=== PATIENT | female | born 1940 | race Caucasian/White ===

== ENCOUNTER 2020-12-12 10:57 | Outpatient (CLI) | payer MEDICARE, SELFPAY ==
[2020-12-12 12:02] LABS: Hematocrit 41.9 % (37.0-47.0)
[2020-12-12 12:18] LABS: Blood Urea Nitrogen 20 mg/dL (7-17); Estimated Glomerular Filt Rate 60
== END 2020-12-12 10:58 | disposition home or self-care (01) ==
LOC: ANHLAB 11:03
PROVIDERS: PCP Emergency Medicine; Visit Provider Internal Medicine Interventional Cardiology
DX: I42.9 Cardiomyopathy, unspecified (principal); E78.5 Hyperlipidemia, unspecified
CPT/HCPCS: 36415; 82565; 84520; 85014; 85018

== ENCOUNTER 2021-02-06 08:32 | Outpatient (CLI) | payer MEDICARE, SELFPAY ==
--- NOTE | 2021-02-06 09:17 | ECG_ITS ---
Measurements Intervals [place] Rate: 77 P: -31 AL: 311 QRS: 233 QRSD: 182 T: 13 QT: 459 QTc: 520 Interpretive Statements ELECTRONIC ATRIAL PACEMAKER ELECTRONIC VENTRICULAR PACEMAKER BASELINE ARTIFACT- I, II, III, AVR, AVL, AVF NO FURTHER INTERPRETATION IS POSSIBLE ATYPICAL ECG Electronically Signed On 02-06-2021 9:31:56 FINANCIAL SERVICES EDUCATION CONSULTANT by Bunny Wall D.O.
[2021-02-06 09:26] LABS: Hematocrit 43.6 % (37.0-47.0); Hemoglobin 13.8 g/dL (12.0-15.0)
[2021-02-06 09:38] LABS: Albumin Level 4.1 g/dL (3.5-5.1); Estimated Glomerular Filt Rate 43; Glucose 126 mg/dL (65-110)
[2021-02-06 09:54] LABS: Urine Cotinine NEGATIVE
[2021-02-06 10:03] LABS: Hemoglobin A1C 5.3 % (<5.7)
== END 2021-02-06 08:33 | disposition home or self-care (01) ==
LOC: ANHLAB 08:42
PROVIDERS: PCP Emergency Medicine; Visit Provider Orthopaedic Surgery
DX: M16.12 Unilateral primary osteoarthritis, left hip (principal); Z01.818 Encounter for other preprocedural examination; Z95.0 Presence of cardiac pacemaker; I11.0 Hypertensive heart disease with heart failure
CPT/HCPCS: 80307; 82040; 82565; 82947; 83036; 85014; 85018; 93005

== ENCOUNTER 2021-03-23 08:33 | Outpatient (CLI) | payer MEDICARE, SELFPAY ==
[2021-03-23 10:27] LABS: Alanine Aminotransferase 22 U/L (4-35); Albumin Level 4.3 g/dL (3.5-5.1); Alkaline Phosphatase 109 U/L (38-126); Anion Gap 9 mmol/L (8-16); Aspartate Amino Transferase 26 U/L (14-36); Bilirubin,Total 0.7 mg/dL (0.2-1.3); Blood Urea Nitrogen 23 mg/dL (7-17); Calcium 9.2 mg/dL (8.4-10.2); Carbon Dioxide 27 mmol/L (22-30); Chloride 104 mmol/L (98-107); Cholesterol 189 mg/dL (0-200); Estimated Glomerular Filt Rate 60; Glucose 122 mg/dL (65-110); HDL Direct 70 mg/dL; Sodium 140 mmol/L (137-145); Triglycerides 108 mg/dL (<150)
[2021-03-23 10:38] LABS: LDL Cholesterol Direct 83 mg/dL
[2021-03-27 23:58] LABS: Vitamin D 1,25 (OH)2 Total 44 pg/mL (18-72); Vitamin D2 1,25 (OH)2 <8 pg/mL; Vitamin D3 1,25 (OH)2 44 pg/mL
== END 2021-03-23 08:34 | disposition home or self-care (01) ==
PROVIDERS: PCP Emergency Medicine; Visit Provider Emergency Medicine
DX: R53.83 Other fatigue (principal); I10 Essential (primary) hypertension
CPT/HCPCS: 36415; 80053; 80061; 82652

== ENCOUNTER 2021-05-17 09:39 | Outpatient (CLI) | payer MEDICARE, SELFPAY ==
[2021-05-17 11:18] LABS: Basophils Absolute Auto 0.1 K/mm3 (0.0-0.1); Basophils Percent Auto 0.6 % (0.2-1.2); Eosinophils Absolute Auto 0.2 K/mm3 (0-0.3); Eosinophils Percent Auto 2.7 % (0-4.4); Hemoglobin 13.7 g/dL (12.0-15.0); Immature Granulocyte Absolute 0.03 K/mm3 (0.00-0.031); Immature Granulocyte Percent A 0.4 % (0-0.5); Lymphocytes Absolute Auto 2.13 K/mm3 (0.9-3.2); Lymphocytes Percent Auto 26.5 % (18.3-44.2); Mean Corpuscular HGB Conc 30.4 g/dl (32-36); Mean Corpuscular Hemoglobin 30.2 pg (26-34); Mean Corpuscular Volume 99.1 fl (80-100); Mean Platelet Volume 9.5 fl (7.4-10.4); Monocytes Absolute Auto 0.6 K/mm3 (0.1-0.6); Neutrophils Percent Auto 61.8 % (45.5-73.1); Nucleated Red Blood Cells Perc 0.2 % (0.0-0.2); Platelet Count Result 346 k/mm3 (150-375); Red Blood Count 4.54 M/mm3 (4.2-5.4)
[2021-05-17 11:23] LABS: Albumin Level 4.3 g/dL (3.5-5.1)
[2021-05-17 11:26] LABS: Anion Gap 5 mmol/L (8-16); Blood Urea Nitrogen 19 mg/dL (7-17); Carbon Dioxide 30 mmol/L (22-30); Chloride 105 mmol/L (98-107); Estimated Glomerular Filt Rate > 60; Glucose 106 mg/dL (65-110); Sodium 140 mmol/L (137-145)
[2021-05-17 11:27] LABS: Urine Cotinine NEGATIVE
[2021-05-17 11:28] LABS: Hemoglobin A1C 5.4 % (<5.7)
[2021-05-17 11:49] LABS: INR 1.1; Partial Thromboplastin Time 27.8 SECONDS (22.3-36.8); Prothrombin Time 13.3 Seconds (11.1-14.7)
== END 2021-05-17 09:40 | disposition home or self-care (01) ==
PROVIDERS: Anesthesiology; PCP Emergency Medicine; Visit Provider Orthopaedic Surgery
DX: M16.12 Unilateral primary osteoarthritis, left hip (principal); N18.30 Chronic kidney disease, stage 3 unspecified; Z79.899 Other long term (current) drug therapy; Z01.818 Encounter for other preprocedural examination
CPT/HCPCS: 36415; 80048; 80307; 82040; 83036; 85025; 85610; 85730; 87081

== ENCOUNTER 2021-06-14 16:33 | Observation (INO) | payer MEDICARE, SELFPAY ==
--- NOTE | 2021-05-17 10:00 | PC.NURSE ---
Report to the Outpatient Waiting Room, entrance under the green pavilion located off [facility], at time _0600__ on date _06/13/21_. OR Time: _0730_. - You and your visitor will be asked a series of questions to screen for COVID 19 for your protection. - A mask is required within the hospital. One visitor will be allowed to accompany the patient into the hospital. Patients visitor will be instructed to remain with patient at all times or leave the building. We will allow the visitor to come back to the postoperative area when patient is ready. (VISITING HOURS 10AM-7PM, USE MAIN ENTRANCE) Preoperative COVID Testing Requirements: NONE Patients may have clear liquids (water, carbonated beverages, clear teas, apple juice) until 3 hours prior to surgery (0430 AM) with a maximum of 20 ounces. - No food from midnight until time of surgery Take the following medications with a SIP of water the morning of surgery: _AMIODARONE, METOPROLOL__ Medications to discontinue per physician _APIXABAN (ELIQUIS) - 2 DAYS PRIOR TO SURGERY, LAST DOSE TO BE TAKEN ON 06/10/21_ Please no make-up, nail vietnamese, hairspray, perfume, deodorant, or body powder the day of surgery. No jewelry (including any body piercings) or valuables the day of surgery, leave them at home. Please take a shower or bath the night before, or the morning of, surgery with an antibacterial soap. Wear comfortable, loose fitting clothing. - Jewelry must be removed prior to entering the operating room. Rings and piercings that are not removed may be cut off. - The hospital will not accept responsibility for valuables. - Please leave all valuables, including medications, at home the day of surgery. If you are going home after surgery, a licensed flag car driver must drive you home. - NO public transportation without another adult. - We recommend that an adult stay with you for 24 hours following discharge. - We also recommend that you do not drive, make important decision, drink alcoholic beverages, or take any drugs that were not prescribed by your health care provider for at least 24 hours after your discharge time. One visitor will be allowed to accompany the patient into the hospital. Patients visitor will be instructed to remain with patient at all times or leave the building. We will allow the visitor to come back to the postoperative area when patient is ready. Follow any additional instructions given to you from your surgeon. Instructions given to __PT & DAUGHTER __and asked if any additional questions and then verbalized understanding. Patient advised to call surgeon office or pre surgery nurse liaisonLIZETH [phone] if any additional questions.
[2021-05-17 10:15] VITALS: BP 158/90; PULSE 76; RESP 20; TEMP 36.5; O2SAT 99; BMI 37.2
--- NOTE | 2021-06-12 10:05 | PCCCNOTE ---
Called to Dr. Porras's office manager epic, Deborah, she confirms that patient should be OPER/23 hour observation.
--- NOTE | 2021-06-12 15:24 | WPDANESEPPF ---
Anes - Initial Pre Proc Eval Procedure: Operation Date: 06/13/21 07:30 Proposed Procedures p Left Total Hip Arthroplasty - Jamar Porras MD Date/Time: 06/12/21 15:24 Surgeon: Jamar Porras MD Pre Op Diagnosis: primary OA left hip Patient Data Age: 81 Gender: F Height: 1.63 m Weight: 98.4 kg Last Vital Signs Temp 36.5 C 05/17/21 10:15 Pulse 76 05/17/21 10:15 Resp 20 05/17/21 10:15 BP 158/90 H 05/17/21 10:15 Pulse Ox 99 05/17/21 10:15 Allergies Allergy/AdvReac Type Severity Reaction Status Date / Time lisinopril Allergy Unknown Cough Verified 05/17/21 10:17 Home Medications Medication Instructions Recorded Confirmed Type amiodarone 200 mg tablet 200 mg PO QAM 10/26/20 05/17/21 History apixaban 5 mg tablet 5 mg PO BID 10/26/20 05/17/21 History atorvastatin 20 mg tablet 20 mg PO HS 10/26/20 05/17/21 History furosemide 40 mg tablet 40 mg PO QAM 10/26/20 05/17/21 History losartan 25 mg tablet 25 mg PO QAM 10/26/20 05/17/21 History metoprolol succinate 100 mg 100 mg PO BID 10/26/20 05/17/21 History tablet,extended release 24 hr fexofenadine-pseudoephedrine 1 tablet PO QAM PRN 05/17/21 05/17/21 History [Janae-D 24 Hour] ECG: Date of Service: 02/06/21 Procedure(s): CA 12 lead EKG Accession Number(s): [id number] cc: ~ Measurements Intervals [place] Rate: 77 P: -31 GA: 311 QRS: 233 QRSD: 182 T: 13 QT: 459 QTc: 520 Interpretive Statements ELECTRONIC ATRIAL PACEMAKER ELECTRONIC VENTRICULAR PACEMAKER BASELINE ARTIFACT- I, II, III, AVR, AVL, AVF NO FURTHER INTERPRETATION IS POSSIBLE ATYPICAL ECG Electronically Signed On 02-06-2021 9:31:56 TOOLMAKER HELPER by Bunny Wall D.O. Other studies: ef 48% on 2020 cath - cleared by mds rn @ low risk for cardiac event Patient hx anesthesia problems: none Family hx anesthesia problems: none Results Review: All pre-operative results and documents have been reviewed as part of the pre-operative evaluation. [facility] Past Medical History Medical History (Updated 06/12/21 @ 15:25 by Clay Gibson MD) CAD (coronary artery disease) Congestive heart failure (~2015) History of arm fracture Hyperlipidemia Hypertension Pacemaker (~2015) Surgical History Surgical History History of neck surgery Family History Family History Unknown Heart disease Cancer Arthritis Social History Social History Smoking status: Never smoker Second hand tobacco smoke exposure: No Additional smoking assessment comments: PT DENIES ALL FORMS OF TOBACCO USE Alcohol intake: never Substance use: never Substance use type: does not use Living arrangements: alone Spiritual care concerns: No Anes - Eval Final PreProcedure Day of Procedure 06/12/21 15:24 Patient weight: obese Heart: regular rate and rhythm Lungs: clear to auscultation and normal air movement Airway: Mallampati scale class II Neurological: alert and oriented Last oral intake: >/= 8 hours ASA classification: IV Emergent: no Anesthetic plan: proceed Anesthesia type and monitoring: general LMA and ETT Results Review: All pre-operative results and documents have been reviewed as part of the pre-operative evaluation. Informed Consent: The patient's anesthetic plan and its attendant risks and benefits were discussed with the patient/family/POA. Questions were solicited and answers provided to the satisfaction of the patient/family/POA.
[2021-06-13] VITALS (14 sets, daily range): BP systolic 97–150; BP diastolic 51–78; PULSE 70–86; RESP 10–20; TEMP 35.7–36.3; O2SAT 95–100
[2021-06-13] MEDS: ACETAMINOPHEN 500 MG TABLET 1000 MG PO (06:43)
[2021-06-13] MEDS: LACTATED RINGERS 1,000 ML 30 ML IV CONT (06:56)
[2021-06-13] MEDS: TRANEXAMIC ACID 1,000MG/ISO100 1,000 MG/100 ML BAG 200 MG IVPB (06:56)
--- NOTE | 2021-06-13 07:17 | WPDHPUPDATE1 ---
History and Physical Update Update Date/Time: 06/13/21 07:17 History and Physical has been reviewed, including an updated exam of the patient. There are NO changes in the patient's condition. Risks, benefits, and alternatives have been discussed and questions answered. Patient agrees to proceed with procedure.
[2021-06-13] MEDS: ceFAZolin 2 GM/D5W 50 ML 2 GM/50 ML BAG IVPB ×3 (07:30→22:43)
[2021-06-13] MEDS: fentaNYL CITRATE INJ (*CRX) 100 MCG/2 ML VIAL 25 MCG IV PUSH ×3 (10:26→10:39)
--- NOTE | 2021-06-13 11:42 | ADMGEN ---
This patient, Barbara Willoughby, was admitted to Medical Room 247-. Patient/family oriented to hospital policies and general routines including ID bracelet, bed and alarms, visiting hours, pain management, procedures, bathroom and other care routines, personal items, smoking policy, room service/diet, and visiting hours. Information on how to activate the Rapid Response Team has been discussed. Patient/Family are encouraged to report perceived risks to care and to ask questions if they do not understand what they are told or what they should do.
[2021-06-13] MEDS: SODIUM CHLORIDE 0.9% IV 1,000 ML 125 ML IV CONT (12:02)
[2021-06-13] MEDS: METOPROLOL SUCCINATE EXT REL 100 MG TABCR PO (12:05)
[2021-06-13] MEDS: FUROSEMIDE 40 MG TABLET PO (12:06)
[2021-06-13] MEDS: polyethylene glycoL 3350 17 GM POWD.PACK PO (12:06)
--- NOTE | 2021-06-13 13:42 | W.PM.PROC2 ---
Procedure Note - Detailed Date of Procedure 06/13/21 Pre-op Diagnosis primary OA left hip Post-op Diagnosis Same Procedure Performed Left Total Hip Arthroplasty Surgeon Jamar Porras MD Customer Support Professional Glenda Luis PA-C Anesthesia General Findings Satisfactory bone quality. Morbid obesity in the hips. Description of Procedure The patient was given preoperative antibiotics. A general anesthetic was administered. The patient was carefully placed in the lateral decubitus position on the PEG board. The shoulders and hips were carefully positioned for component and leg length positioning reference. The hip was prepped and draped in the usual sterile fashion. A longitudinal incision was created over the posterior aspect of the greater trochanter. Careful dissection was brought down through the deep fascia with electrocautery. A minimally invasive optimized posterior approach to the hip was performed. The short external rotators and capsule were taken down in an L-shaped capsulotomy. The tissue was tagged for later repair using number 2 high strength suture. The femoral neck was measured and taken in situ. The femoral head was removed. The acetabulum was carefully exposed. The inferior capsule was released. The labrum was resected. The acetabulum was sequentially reamed to one over the intended cup size. The cup was impacted into position with excellent press-fit. Typical anatomic landmarks, including the bony contact points as well as the inferior transverse acetabular ligament were used to confirm cup positioning with preoperative templating. Attention was turned to the femur, which was carefully exposed. The hip was reamed and then broached sequentially. Excellent press-fit was obtained with the broach. The hip was trialed. Measurements were utilized, including the lesser trochanter as well as the center of the femoral head and the tip of the trochanter, and excellent assessment of the offset and leg lengths were confirmed. The real component was impacted into position. Trialing confirmed appropriate leg length and offset with soft tissue balancing as well apparent feel of the leg, both at the knee and the heel. Soft tissues were assessed using the the iliotibial band. Reduction of the posterior capsule and external rotators were also used as a secondary assessment. The hip was copiously irrigated with pulsatile lavage antibiotic solution periodically throughout the procedure. The real components were then assembled and reduced. The hip was stable throughout typical maneuvers, including extension, external rotation to 70 degrees, the position of sleep as well as flexion to 90 degrees with internal rotation past 45 degrees. The shake test confirmed stability without impingement. Osteophytes were removed as necessary. The short external rotators and capsule were repaired back to the posterior trochanter through drill holes. The deep fascia was repaired with running number 2 Quill suture, followed by 0 Stratafix suture and 2-0 Stratafix suture in the dermis. Steri-Strips were placed on the skin, followed by a sterile silver occlusive dressing. There were no complications. Meticulous hemostasis was maintained with the AquaMantys device. The patient was brought to the recovery room in stable condition. There were no complications. Implants The Accolade II hip stem, 127 degree size 6 , was utilized with excellent press-fit. The 50 mm Trident II acetabular component was impacted with excellent press-fit stability. The -5 , 36 mm Biolox ceramic femoral head was utilized. Estimated Blood Loss -250.0 Drains No Packing No Pathology None sent Complications No immediate complications Condition Stable Disposition PACU
[2021-06-13] MEDS: ONDANSETRON INJ 4 MG/2 ML VIAL IV PUSH (14:00)
--- NOTE | 2021-06-13 16:35 | PC.NURSE ---
Patient refused cold therapy, stated its too cold and isn't going to put it on.
[2021-06-13] MEDS: SENNA/DOCUSATE SODIUM TABLET 2 TAB PO (17:07)
--- NOTE | 2021-06-13 21:04 | PM.IMCN ---
Assessment and Plan Assessment and plan (1) Arthritis of left hip: Code(s): M16.12 - Unilateral primary osteoarthritis, left hip Status: Acute Assessment and Plan: Patient doing very well and she is up in the chair when being evaluated. Patient denies any pain to her hip. Will continue with pain medication and DVT prophylaxis per Orthopedic surgery's recommendations. (2) HTN (hypertension): Qualifiers: Hypertension type: primary hypertension Qualified Code(s): I10 - Essential (primary) hypertension Code(s): I10 - Essential (primary) hypertension Status: Acute Assessment and Plan: Will resume patient's home medications and adjust medications accordingly for optimal blood pressure control. (3) Afib: Qualifiers: Atrial fibrillation type: unspecified chronic Qualified Code(s): I48.20 - Chronic atrial fibrillation, unspecified Code(s): I48.91 - Unspecified atrial fibrillation Status: Acute Assessment and Plan: Patient's home amiodarone and beta-jessy has been resumed. Patient will be restarted on her Eliquis when Orthopedic surgery is okay with this medication. (4) Irritation of right eye: Code(s): H57.89 - Other specified disorders of eye and adnexa Status: Acute Assessment and Plan: Most likely secondary to corneal abrasion. Patient does have lubricating drops at bedside she states that is mildly improved with this. Will continue to monitor patient for any further complaints. HPI Data of Consult Consult date: 06/13/21 Requesting Physician: Jamar Porras MD Primary Care Provider: Carlos Burrell MD Consult Narrative Narrative: Barbara Willoughby is a 81 year old female who presented to the hospital for an elective left hip arthroplasty. Patient states that she does follow with Cardiology in [place], [place] for paroxysmal atrial fibrillation. Patient states she does have a pacemaker which was placed in 2015. 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 Patient had cardiac catheterization in 2020 showing a small posterior infarct, 40% stenosis to her mid LAD and no further stenotic areas noted and ejection fraction of 40%. At this point time patient states she is doing very well she is sitting up in a chair with no complaints of hip pain. Patient states she does have right eye pain and it feels like a foreign substance may be in there. Patient states that has been bothering her since she woke up from surgery. At this point time patient is denying any chest pain, shortness a breath, lightheadedness, dizziness, syncopal, or near syncopal episodes. Review of Systems Review of Systems: A 12 point review of systems was completed patient all pertinent positive and negative per HPI the remainder are unremarkable. [facility] Past Medical History Medical History (Updated 06/13/21 @ 21:15 by Cecy Villanueva APRN) CAD (coronary artery disease) Congestive heart failure (~2015) History of arm fracture Hyperlipidemia Hypertension Pacemaker (~2015) Surgical History Surgical History History of neck surgery Family History Family History Unknown Heart disease Cancer Arthritis Social History Social History Smoking status: Never smoker Second hand tobacco smoke exposure: Yes Alcohol intake: never Substance use: never Substance use type: does not use Living arrangements: alone Spiritual care concerns: No Meds Home Medications and Allergies Home Medications Medication Instructions Recorded Confirmed Type amiodarone 200 mg tablet 200 mg PO QAM 10/26/20 06/13/21 History apixaban 5 mg tablet 5 mg PO BID 10/26/20 06/13/21 History atorvastatin
[2021-06-13] MEDS: FAMOTIDINE 20 MG TABLET PO (21:35)
[2021-06-13] MEDS: ATORVASTATIN 20 MG TABLET PO (21:35)
--- NOTE | 2021-06-13 23:53 | PC.NURSE ---
Per report pt refusing cryocuff. Pt is agreeable to use gel packs at this time. Gel packs ordered as substitute and placed in freezer.
[2021-06-14] VITALS (10 sets, daily range): BP systolic 96–148; BP diastolic 40–71; PULSE 73–111; RESP 20–21; TEMP 35.8–36.9; O2SAT 93–100
--- NOTE | ~2021-06-14 | XR_ITS ---
EXAMINATION: XR hip LT min 2V DATE: 06/13/2021 10:22 INDICATION: Postoperative evaluation following left total hip arthroplasty TECHNIQUE: Anteroposterior and lateral views of the left hip were obtained. COMPARISON: 10/26/2020 FINDINGS: Interval placement of a left total hip arthroplasty which appears well seated in near anatomic alignm ent. Expected subcutaneous gas in the postoperative bed. No fractures identified. IMPRESSION: 1. Left total hip arthroplasty, negative for postoperative purposes. Reviewed, dictated and finalized at location A.
[2021-06-14] MEDS: METOPROLOL SUCCINATE EXT REL 50 MG TABCR PO (00:13)
[2021-06-14] MEDS: oxyCODONE HCL (*CRX) 5 MG TAB IR PO ×2 (04:35→22:50)
[2021-06-14 06:42] LABS: Potassium 3.9 mmol/L (3.4-5.0)
[2021-06-14 06:51] LABS: Basophils Percent Auto 0.2 % (0.2-1.2); Hematocrit 32.6 % (37.0-47.0); Hemoglobin 10.4 g/dL (12.0-15.0); Immature Granulocyte Absolute 0.07 K/mm3 (0.00-0.031); Immature Granulocyte Percent A 0.4 % (0-0.5); Lymphocytes Absolute Auto 1.12 K/mm3 (0.9-3.2); Lymphocytes Percent Auto 6.9 % (18.3-44.2); Mean Corpuscular HGB Conc 31.9 g/dl (32-36); Mean Platelet Volume 10.2 fl (7.4-10.4); Monocytes Absolute Auto 1.2 K/mm3 (0.1-0.6); Monocytes Percent Auto 7.5 % (2.6-8.5); Neutrophils Absolute Auto 13.7 K/mm3 (1.3-6.7); Nucleated Red Blood Cells Perc 0.1 % (0.0-0.2); Platelet Count Result 270 k/mm3 (150-375); Red Blood Count 3.36 M/mm3 (4.2-5.4); Red Cell Distribution Width 14.2 % (11.5-14.5); White Blood Count 16.2 K/mm3 (4.5-10.0)
[2021-06-14] MEDS: ceFAZolin 2 GM/D5W 50 ML 2 GM/50 ML BAG IVPB (06:56)
[2021-06-14 07:46] LABS: Anion Gap 5 mmol/L (8-16); Blood Urea Nitrogen 24 mg/dL (7-17); Carbon Dioxide 24 mmol/L (22-30); Chloride 105 mmol/L (98-107); Estimated CRCL calculation 44 ml/min; Estimated Glomerular Filt Rate 53; Glucose 128 mg/dL (65-110); Sodium 134 mmol/L (137-145)
[2021-06-14] MEDS: AMIODARONE HCL 200 MG TABLET PO (08:06)
[2021-06-14] MEDS: SENNA/DOCUSATE SODIUM TABLET 2 TAB PO ×2 (08:07→16:52)
[2021-06-14] MEDS: LOSARTAN POTASSIUM 25 MG TABLET PO (08:07)
[2021-06-14] MEDS: FUROSEMIDE 40 MG TABLET PO (08:07)
[2021-06-14] MEDS: FAMOTIDINE 20 MG TABLET PO ×2 (08:07→19:52)
[2021-06-14] MEDS: polyethylene glycoL 3350 17 GM POWD.PACK PO (08:07)
[2021-06-14] MEDS: METOPROLOL SUCCINATE EXT REL 100 MG TABCR PO ×2 (08:07→19:51)
[2021-06-14] MEDS: oxyCODONE HCL (*CRX) 5 MG TAB IR 10 MG PO (13:24)
--- NOTE | 2021-06-14 16:20 | PM.PNORT ---
Progress Note: A&P Assessment and Plan (1) Status post total hip replacement, left: Code(s): Z96.642 - Presence of left artificial hip joint Status: Acute Assessment and Plan: POD #1 Total hip arthroplasty Patient struggling with PT and pain control. She does not feel steady when ambulating. She is very tired. She has been very sedentary for the past 4 years and she lacks strength. I recommend she get more therapy before going home. She will have her daughter at home with her helping her; however rehab may be a consideration due to her decreased strength and stamina. Will reassess discharge tomorrow. Will restart apixaban 5 mg daily tonight. Subjective Subjective Date/Time Seen: 06/14/21 16:20 Saw patient twice today. Increased pain and trouble ambulating. Patient has not been very active in the last 4 years and has decreased strength. States she felt like her hip was going to give out at times and she did not feel safe. No numbness or tingling. No other symptoms. Patient did not sleep well last night and is tired. Review of Systems Review of Systems: All systems reviewed & are unremarkable except as noted in HPI and below Exam Narrative: Overweight 81 y/o female. Resting comfortably in bed. Wearing compression socks bilaterally. Dressing dry and intact with no drainage. Moderate swelling. No ecchymosis. No erythema. No hematoma. Range of motion limited due to pain. Calf nontender. Thigh nontender. Neurologic status intact. No varicosities. Distal pulses palpable. Objective Data Vital Signs Vital Signs: Vital Signs - 24 hr 06/13/21 17:01 06/13/21 21:01 06/13/21 23:32 Temperature 97.2 F L 96.2 F L 96.6 F L Pulse Rate 73 82 86 Respiratory Rate 18 18 20 Blood Pressure 110/57 L 97/56 L 105/51 L Pulse Oximetry 100 97 97 06/14/21 00:13 06/14/21 04:50 06/14/21 08:06 Temperature 96.5 F L Pulse Rate 86 98 111 H Respiratory Rate 20 Blood Pressure 96/49 L Pulse Oximetry 97 06/14/21 08:07 06/14/21 14:01 Temperature 98.4 F Pulse Rate 111 H 100 Respiratory Rate 20 Blood Pressure 111/56 L Pulse Oximetry 100 Intake/Output Intake/Output: Intake & Output 03/27/22 03/28/22 03/29/22 03/30/22 23:59 23:59 23:59 23:59 Intake Total 2009 870 Output Total 500 Balance 2009 370 Meds/Results Medications: Active Medications Generic Name Dose Route Start Last Admin Trade Name Freq PRN Reason Stop Dose Admin Acetaminophen 650 mg 06/13/21 11:16 Acetaminophen 325 Mg Tablet PO Q6H PRN Mild Pain (1-3) or Fever Amiodarone HCl 200 mg 06/13/21 11:16 06/14/21 08:06 Amiodarone Hcl 200 Mg Tablet PO 200 mg QAM MELE Administration Apixaban 5 mg 06/14/21 21:00 Apixaban 5 Mg Tablet PO HS MELE Atorvastatin Calcium 20 mg 06/13/21 21:00 06/13/21 21:35 Atorvastatin 20 Mg Tablet PO 20 mg HS MELE Administration Cyclobenzaprine HCl 10 mg 06/13/21 11:16 Cyclobenzaprine Hcl 10 Mg Tablet PO Q8H PRN Muscle Spasm Famotidine 20 mg 06/13/21 12:00 06/14/21 08:07 Famotidine 20 Mg Tablet PO 20 mg Q12HR MELE Administration Furosemide 40 mg 06/13/21 11:16 06/14/21 08:07 Furosemide 40 Mg Tablet PO 40 mg QAM MELE Administration Loratadine/Pseudoephedrine Sulfate 1 tab 06/13/21 11:41 Loratadine/Pseudoephedrine (*Crx) 10/240 Mg Tablet Er 24 Hr PO QAM PRN Congestion Losartan Potassium 25 mg 06/13/21 11:16 06/14/21 08:07 Losartan Potassium 25 Mg Tablet PO 25 mg QAM MELE Administration Metoprolol Succinate 100 mg 06/13/21 12:00 06/14/21 08:07 Metoprolol Succinate Ext Rel 100 Mg Tabcr PO 100 mg Q12HR MELE Administration Naloxone HCl 0.1 mg 06/13/21 11:16 Naloxone Hcl 0.4 Mg/Ml Vial IV PUSH Q2M PRN Opiate Reversal Ondansetron HCl 4 mg 06/13/21 11:16 06/13/21 14:00 Ondansetron Inj 4 Mg/2 Ml Vial IV PUSH 4 mg Q4H PRN Administration Nausea And Vomiting
--- NOTE | 2021-06-14 17:15 | PM.IMPN ---
Progress Note: A&P Assessment and Plan (1) Arthritis of left hip: Code(s): M16.12 - Unilateral primary osteoarthritis, left hip Status: Acute Assessment and Plan: POD#1 s/p left hip arthroplasty -Management per Orthopedic surgery (2) HTN (hypertension): Qualifiers: Hypertension type: primary hypertension Qualified Code(s): I10 - Essential (primary) hypertension Code(s): I10 - Essential (primary) hypertension Status: Acute Assessment and Plan: Will resume patient's home medications and adjust medications accordingly for optimal blood pressure control. (3) Afib: Qualifiers: Atrial fibrillation type: unspecified chronic Qualified Code(s): I48.20 - Chronic atrial fibrillation, unspecified Code(s): I48.91 - Unspecified atrial fibrillation Status: Acute Assessment and Plan: Continue home BB and amiodarone. Holding anticoagulation for now. (4) Irritation of right eye: Code(s): H57.89 - Other specified disorders of eye and adnexa Status: Acute Assessment and Plan: Continue lubricant drops Subjective Date/time seen: Date of service 06/14/21 09 Patient says she has been working with physical therapy and says she was told she will need a walker. Has no complaints. Review of Systems Musculoskeletal: Musculoskeletal: Reports arthralgias Exam Narrative: GENERAL: NAD, cooperative HEENT: Normocephalic, atraumatic, anicteric, nares clear, oropharynx moist and clear, dentition normal NECK: Supple CV: Normal S1, S2, RRR, No MRG RESP: CTAB, Normal work of breathing. Abdomen: Soft, non-tender, non-distended, +BS EXTREMITIES: Warm and well perfused, no clubbing, cyanosis SKIN: warm, dry and intact. NEURO:CN 2-12 grossly intact Objective Data Vital Signs Vital Signs: Vital Signs - 24 hr 06/13/21 21:01 06/13/21 23:32 06/14/21 00:13 Temperature 96.2 F L 96.6 F L Pulse Rate 82 86 86 Respiratory Rate 18 20 Blood Pressure 97/56 L 105/51 L Pulse Oximetry 97 97 06/14/21 04:50 06/14/21 08:06 06/14/21 08:07 Temperature 96.5 F L Pulse Rate 98 111 H 111 H Respiratory Rate 20 Blood Pressure 96/49 L Pulse Oximetry 97 06/14/21 14:01 06/14/21 16:50 Temperature 98.4 F 97.3 F L Pulse Rate 100 88 Respiratory Rate 20 20 Blood Pressure 111/56 L 148/71 H Pulse Oximetry 100 95 Intake/Output Intake/Output: Intake & Output 06/11/21 06/12/21 06/13/21 06/14/21 23:59 23:59 23:59 23:59 Intake Total 2009 111 Output Total 500 Balance 2009 610 Meds/Results Medications: Active Medications Generic Name Dose Route Start Last Admin Trade Name Freq PRN Reason Stop Dose Admin Acetaminophen 650 mg 06/13/21 11:16 Acetaminophen 325 Mg Tablet PO Q6H PRN Mild Pain (1-3) or Fever Amiodarone HCl 200 mg 06/13/21 11:16 06/14/21 08:06 Amiodarone Hcl 200 Mg Tablet PO 200 mg QAM MELE Administration Apixaban 5 mg 06/14/21 21:00 Apixaban 5 Mg Tablet PO HS MELE Atorvastatin Calcium 20 mg 06/13/21 21:00 06/13/21 21:35 Atorvastatin 20 Mg Tablet PO 20 mg HS MELE Administration Cyclobenzaprine HCl 10 mg 06/13/21 11:16 Cyclobenzaprine Hcl 10 Mg Tablet PO Q8H PRN Muscle Spasm Famotidine 20 mg 06/13/21 12:00 06/14/21 08:07 Famotidine 20 Mg Tablet PO 20 mg Q12HR MELE Administration Furosemide 40 mg 06/13/21 11:16 06/14/21 08:07 Furosemide 40 Mg Tablet PO 40 mg QAM MELE Administration Loratadine/Pseudoephedrine Sulfate 1 tab 06/13/21 11:41 Loratadine/Pseudoephedrine (*Crx) 10/240 Mg Tablet Er 24 Hr PO QAM PRN Congestion Losartan Potassium 25 mg 06/13/21 11:16 06/14/21 08:07 Losartan Potassium 25 Mg Tablet PO 25 mg QAM MELE Administration Metoprolol Succinate 100 mg 06/13/21 12:00 06/14/21 08:07 Metoprolol Succinate Ext Rel 100 Mg Tabcr PO 100 mg Q12HR MELE Administration Naloxone HC
[2021-06-14] MEDS: APIXABAN 5 MG TABLET PO (19:51)
[2021-06-14] MEDS: ATORVASTATIN 20 MG TABLET PO (19:51)
[2021-06-15 02:06] VITALS: BP 111/45; PULSE 72; RESP 20; TEMP 36.6; O2SAT 98
[2021-06-15 06:00] VITALS: BP 113/47; PULSE 76; RESP 18; TEMP 36.9; O2SAT 97
--- NOTE | 2021-06-15 07:12 | PM.IMPN ---
Progress Note: A&P Assessment and Plan (1) Arthritis of left hip: Code(s): M16.12 - Unilateral primary osteoarthritis, left hip Status: Acute Assessment and Plan: POD#1 s/p left hip arthroplasty -Management per Orthopedic surgery (2) HTN (hypertension): Qualifiers: Hypertension type: primary hypertension Qualified Code(s): I10 - Essential (primary) hypertension Code(s): I10 - Essential (primary) hypertension Status: Acute Assessment and Plan: Continue home medication.. (3) Afib: Qualifiers: Atrial fibrillation type: unspecified chronic Qualified Code(s): I48.20 - Chronic atrial fibrillation, unspecified Code(s): I48.91 - Unspecified atrial fibrillation Status: Acute Assessment and Plan: Continue home BB and amiodarone. Anticoagulation mangemetn per Orthopedic Surgery. (4) Irritation of right eye: Code(s): H57.89 - Other specified disorders of eye and adnexa Status: Acute Assessment and Plan: Continue lubricant drops Subjective Date/time seen: 06/15/21 07:12 Patient says she feels fine until she has to stand and that is when she has a lot of pain. She has been working with PT. Review of Systems Musculoskeletal: Musculoskeletal: Reports arthralgias Exam Narrative: GENERAL: NAD, cooperative HEENT: Normocephalic, atraumatic, anicteric NECK: Supple CV: Normal S1, S2, RRR, No MRG RESP: CTAB, Normal work of breathing. EXTREMITIES: Warm and well perfused, no clubbing, cyanosis SKIN: warm, dry and intact. NEURO:CN 2-12 grossly intact Objective Data Vital Signs Vital Signs: Vital Signs - 24 hr 06/14/21 08:06 06/14/21 08:07 06/14/21 14:01 Temperature 98.4 F Pulse Rate 111 H 111 H 100 Respiratory Rate 20 Blood Pressure 111/56 L Pulse Oximetry 100 06/14/21 16:50 06/14/21 19:51 06/14/21 20:00 Temperature 97.3 F L Pulse Rate 88 98 98 Respiratory Rate 20 20 Blood Pressure 148/71 H Pulse Oximetry 95 93 06/14/21 20:05 06/14/21 21:53 06/15/21 02:06 Temperature 97.7 F 97.9 F Pulse Rate 73 72 Respiratory Rate 21 H 20 Blood Pressure 114/40 L 111/45 L Pulse Oximetry 93 100 98 Intake/Output Intake/Output: Intake & Output 06/12/21 06/13/21 06/14/21 06/15/21 23:59 23:59 23:59 23:59 Intake Total 2009 1710 Output Total 500 Balance 2009 1210 Meds/Results Medications: Active Medications Generic Name Dose Route Start Last Admin Trade Name Freq PRN Reason Stop Dose Admin Acetaminophen 650 mg 06/13/21 11:16 Acetaminophen 325 Mg Tablet PO Q6H PRN Mild Pain (1-3) or Fever Amiodarone HCl 200 mg 06/13/21 11:16 06/14/21 08:06 Amiodarone Hcl 200 Mg Tablet PO 200 mg QAM MELE Administration Apixaban 5 mg 06/14/21 21:00 06/14/21 19:51 Apixaban 5 Mg Tablet PO 5 mg HS MELE Administration Atorvastatin Calcium 20 mg 06/13/21 21:00 06/14/21 19:51 Atorvastatin 20 Mg Tablet PO 20 mg HS MELE Administration Cyclobenzaprine HCl 10 mg 06/13/21 11:16 Cyclobenzaprine Hcl 10 Mg Tablet PO Q8H PRN Muscle Spasm Famotidine 20 mg 06/13/21 12:00 06/14/21 19:52 Famotidine 20 Mg Tablet PO 20 mg Q12HR MELE Administration Furosemide 40 mg 06/13/21 11:16 06/14/21 08:07 Furosemide 40 Mg Tablet PO 40 mg QAM MELE Administration Loratadine/Pseudoephedrine Sulfate 1 tab 06/13/21 11:41 Loratadine/Pseudoephedrine (*Crx) 10/240 Mg Tablet Er 24 Hr PO QAM PRN Congestion Losartan Potassium 25 mg 06/13/21 11:16 06/14/21 08:07 Losartan Potassium 25 Mg Tablet PO 25 mg QAM MELE Administration Metoprolol Succinate 100 mg 06/13/21 12:00 06/14/21 19:51 Metoprolol Succinate Ext Rel 100 Mg Tabcr PO 100 mg Q12HR MELE Administration Naloxone HCl 0.1 mg 06/13/21 11:16 Naloxone Hcl 0.4 Mg/Ml Vial IV PUSH Q2M PRN Opiate Reversal Ondansetron HCl 4 mg 06/13/21 11:16 0
[2021-06-15 08:35] VITALS: PULSE 72
[2021-06-15] MEDS: FAMOTIDINE 20 MG TABLET PO (08:35)
[2021-06-15] MEDS: LOSARTAN POTASSIUM 25 MG TABLET PO (08:35)
[2021-06-15] MEDS: polyethylene glycoL 3350 17 GM POWD.PACK PO (08:35)
[2021-06-15] MEDS: METOPROLOL SUCCINATE EXT REL 100 MG TABCR PO (08:35)
[2021-06-15] MEDS: FUROSEMIDE 40 MG TABLET PO (08:35)
[2021-06-15 08:36] VITALS: PULSE 72
[2021-06-15] MEDS: AMIODARONE HCL 200 MG TABLET PO (08:36)
[2021-06-15] MEDS: SENNA/DOCUSATE SODIUM TABLET 2 TAB PO (08:36)
--- NOTE | 2021-06-15 11:11 | P.DS_ITS ---
DS: Admitting Diagnosis Discharge Date 06/15/21 Admitting Diagnosis OA Left hip DS: Discharge Diagnosis Discharge Diagnosis (1) Status post total hip replacement, left: Code(s): Z96.642 - Presence of left artificial hip joint Status: Acute Assessment and Plan: Postop day 2: Total hip arthroplasty. Patient tolerated procedure well. Patient was having pain control issues and trouble ambulating. She has done better today. Spoke with PT, OT, and patient's daughter who all agree she is safe for discharge home with her daughter. Pain manageable with pain medication. No numbness or tingling. We had a lengthy discussion regarding postoperative wound care, limitations, expectations, and exercises. Patient shows good understanding. Patient has had initial physical therapy and is tolerating it well. DVT prophylaxis: 5mg Eliquis once a day for 5 days total after surgery. Then resume twice a day dose. Pain medication: Percocet. Tylenol. Patient has followup appointment with Dr. Porras in 3 weeks DS: Summary Hospital Course Reason for hospitalization: Total hip arthroplasty Hospital Course: Has had initial PT/OT. Patient was having pain control issues and trouble ambulating. She has done better today. Status at Discharge Functional status at discharge: uses cane/walker Overall status at discharge: patient is progressing back to baseline Time Spent with Patient Time attestation: Total time spent providing and/or coordinating discharge services: Exam Narrative: Obese 81 y/o female. Resting comfortably in chair. Wearing compression socks bilaterally. Dressing dry and intact with no drainage. Moderate swelling. No ecchymosis. No erythema. No hematoma. Range of motion limited due to pain. Calf nontender. Thigh nontender. Neurologic status intact. No varicosities. Distal pulses palpable. Discharge Plan Discharge Attending physician on discharge: Jamar Porras Consulting providers: Davidson Valverde Discharging Clinician: Glenda Luis Patient Disposition: Home, Self-Care Activity: may shower Diet: as tolerated and regular Wound Care Instructions: follow printed instructions Discharge Instructions: See green instruction sheet and medication sheet. Patient Instructions: Apixaban (By mouth), Precautions after Total Joint Replacement Surgery (DC), Total Hip Replacement (DC) Follow-up/Referrals: Glenda Luis PA [Physician Continuity Reader] - Discharge Medications: New oxycodone-acetaminophen 5-325 mg tablet 1 - 2 tablet PO Q4-6H MDD 6 PRN (Reason: pain) Qty: 30 RF: 0 Continued metoprolol succinate 100 mg tablet extended release 24 hr 100 mg PO BID RF: 0 furosemide 40 mg tablet 40 mg PO QAM RF: 0 amiodarone 200 mg tablet 200 mg PO QAM RF: 0 losartan 25 mg tablet 25 mg PO QAM RF: 0 atorvastatin 20 mg tablet 20 mg PO HS RF: 0 fexofenadine-pseudoephedrine [Janae-D 24 Hour] 180-240 mg Tablet Extended Release 24 Hr 1 tablet PO QAM PRN (Reason: Congestion) RF: 0 Held Eliquis 5 mg tablet 5 mg PO BID RF: 0 Hold Instructions: Resume on 06/18/21. Take once a day at night for 5 days total then resume twice a day dose. Date of admission: 06/14/21 16:33 Primary Care Provider: Carlos Burrell Admitting Provider: Jamar Porras Attending physician on admission: Jamar Porras Condition: Stable
[2021-06-15] MEDS: oxyCODONE HCL (*CRX) 5 MG TAB IR 10 MG PO (11:52)
== END 2021-06-15 13:27 | disposition home or self-care (01) ==
LOC: ANHSURGERY 16:37 → ANH2MED 16:37
PROVIDERS: Physician Assistant Surgical; Admitting Provider Orthopaedic Surgery; PCP Emergency Medicine; Visit Provider Orthopaedic Surgery
PROC: (CPT 27130; principal; 2021-06-13 07:30)
DX: M16.0 Bilateral primary osteoarthritis of hip (principal); I48.91 Unspecified atrial fibrillation; I11.0 Hypertensive heart disease with heart failure; I50.9 Heart failure, unspecified; H57.89 Other specified disorders of eye and adnexa; E78.5 Hyperlipidemia, unspecified; E66.01 Morbid (severe) obesity due to excess calories; I25.2 Old myocardial infarction; I42.8 Other cardiomyopathies; I25.10 Atherosclerotic heart disease of native coronary artery without angina pectoris; M81.0 Age-related osteoporosis without current pathological fracture; Z95.0 Presence of cardiac pacemaker; Z79.01 Long term (current) use of anticoagulants; Z68.37 Body mass index [BMI] 37.0-37.9, adult
CPT/HCPCS: 27130; 36415; 73502; 80048; 80307; 82040; 83036; 85025; 85610; 85730; 86850; 86900; 86901; 87081; 97110; 97116; 97161; 97165; 97530; 97535; A9270; C1776; G0378; J0131; J0171; J0690; J1100; J1170; J1885; J2250; J2270; J2405; J2704; J2710; J2795; J3010; J7030; J7120

== ENCOUNTER 2021-09-12 09:00 | Outpatient (RCR) | payer MEDICARE, SELFPAY ==
--- NOTE | 2021-07-06 10:24 | PTOPEVAL ---
Thank you for referring Barbara Willoughby to [facility].? The patient is scheduled to be seen for therapy? 2 x/week for 6 weeks. Please review, sign, date and return this plan of care DAVID. I agree with and certify that the following plan of care is medically necessary. Referring Physician Date Attending Provider: AVILA Warren Diagnosis s/p left THR- posterior approach Onset 06/13/21 Additional Evaluation Detail She has ramp to enter her daughters house. She lived at home until May 2021. She had 1 TONG and was able to perform with SBA. But she has not been able to perform multiple steps for 3 yrs. Subjective Information She is not performing HEP, she Query Text:As Reported By Patient/ is walking, but not as much Family as her family thinks she needs to be walking. She is not sleeping in her bed yet. She has a lift chair which she sleeps in. She has increased pain with walking, standing and lifting her leg. She c/o swelling of her leg. Prior to surgery she was indep with her self care and walking with a cane or rollator. She is currently living with family with assistance for transfers, chair lift on steps. She is currently not performing the cooking and cleaning. Pain Assessment Left Hip(s) Reported Pain Level 3 Pain Description Aching,Pressure Pain Frequency Acute Greatest Pain Intensity 5 Pain Aggravating Factors Lifting,Walking,Weight Bearing /Standing Lower Extremity Muscle Strength Testing General Lower Extremity Strength Gross Lower Extremity Strength milady hip flex: 3-/5, milady hip add: 2/5, hip abd: 2/5, unable to lift gluts for bridgin -/5 milady knee ext: 5/5, flex: 4/5 ( seated) milady ankle DF: 5/5 Posture Standing Position Head/C-Spine Posture Forward Head Thoracic Spine Posture Increased Kyphosis Pelvis Posture Anteriorly Tilted Weight Distrib
--- NOTE | 2021-08-15 11:12 | PTOPEVAL ---
PHYSICAL THERAPY PROGRESS REPORT. Thank you for referring Barbara Willoughby to [facility].? The patient is scheduled to be seen for therapy? 2x/week for 4 weeks. Please review, sign, date and return this plan of care DAVID. I agree with and certify that the following plan of care is medically necessary. Referring Physician Date Attending Provider: AVILA Warren Evaluation Information Diagnosis s/p left THR- posterior approach Onset 06/13/21 Subjective Information Pt states she has no pain, and Query Text:As Reported By Patient/ feels like she can do Family everything she needs to do, but not everything she wants to do. Pt states she feels like she should be further along than she is. She states she does her exercises about 50% of the time. Pt states she is torn between using the rollator or the cane. Pain Assessment Pain Score 0: Self Report Lower Extremity Range of Motion General Lower Extremity Range of Motion WFL/Left,WFL/Right Lower Extremity Muscle Strength Testing Gross Lower Extremity Strength milady hip flex: 3+/5, hip abd: 2/5 milady knee ext: 5/5, flex: 4/5 (seated) milady ankle DF: 5/5 glute bridge through partial range 3+/5 Posture Head/C-Spine Posture Forward Head Thoracic Spine Posture Increased Kyphosis Pelvis Posture Anteriorly Tilted Weight Distribution Weight Shifted Left Hip Posture (L) Internally Rotated,(R) Internally Rotated Balance Assessment Timed Up and Go Test (TUG) (Seconds) 46 Assistive Devices Walker, Rollator Comments Initially: 46s 08/15/21: 23s 5 Time Sit to Stand Time in Seconds 19 5 Time Sit to Stand Comments 08/15/21: 19s with use of BUEs, Query Text:Normative Data: If Greater unable to complete without UE Than 15 Seconds, 74% Increase Risk for support Recurrent Falls Gait Assessment Ambulation Assistive Devices Walker, Rollator Gait Pattern Antalgic Gait Gait Pattern Observed Decreased Stride Length - Left ,Decreased Stride Length - Right,No Heel Strike - Left,No Heel Strike - Right,Trunk Flexed Other Gait Observations milady hip int rotation, increased WB milady UE on walker 2 Minute Walk Total Distance Walked (feet)
--- NOTE | 2021-09-12 11:40 | PTOPEVAL ---
PHYSICAL THERAPY PROGRESS REPORT AND DISCHARGE SUMMARY. Thank you for referring Barbara Willoughby to [facility].? The patient is to be discharged from skilled therapy services at this time. Please review, sign, date and return this plan of care DAVID. I agree with and certify that the following plan of care is medically necessary. Referring Physician Date Attending Provider: AVILA Warren Evaluation Information Diagnosis s/p left THR- posterior approach Onset 06/13/21 Subjective Information Pt states she thinks her hip Query Text:As Reported By Patient/ is doing pretty good. She Family states progress is slow, but that this is her own fault. She states she is going to stay with her daughter for a while and she will help to keep her accountable with her exercises. Barbara feels like her biggest limitation is fatigue. Pain Assessment Pain Score 0: Self Report Lower Extremity Range of Motion General Lower Extremity Range of Motion WFL/Left,WFL/Right Lower Extremity Muscle Strength Testing Gross Lower Extremity Strength milady hip flex: 4/5, milady hip abd: 2/5 milady knee ext: 5/5 milady knee flex: 4/5 milady ankle DF: 4/5 glute bridge through partial range 3+/5 Posture Head/C-Spine Posture Forward Head Thoracic Spine Posture Increased Kyphosis Pelvis Posture Anteriorly Tilted Weight Distribution Balanced Hip Posture (L) Internally Rotated,(R) Internally Rotated Palpation Assessment Palpation none Balance Assessment Comments Initially: 46s with rollator 08/15/21: 23s with rollator 09/12/21: 18s with cane 5 Time Sit to Stand 5 Time Sit to Stand Comments 08/15/21: 19s with use of BUEs, Query Text:Normative Data: If Greater unable to complete without UE Than 15 Seconds, 74% Increase Risk for support Recurrent Falls 09/12/21: 21s with the use of BUEs, unable to complete without UE support Gait Assessment 2 Minute Walk Test Comments Initally: 135ft (1.12ft/sec), SOB noted 08/15/21: 225ft (1.87ft/sec), SOB noted 09/12/21: 280ft (2.33ft/sec),
== END 2021-09-12 14:24 | disposition home or self-care (01) ==
LOC: ANHPT 09:00
PROVIDERS: PCP Emergency Medicine; Visit Provider Physician Assistant Surgical
DX: Z47.1 Aftercare following joint replacement surgery (principal); Z96.642 Presence of left artificial hip joint
CPT/HCPCS: 97110; 97112; 97116; 97162; 97530

== ENCOUNTER 2021-12-15 12:30 | Outpatient (RCR) | payer MEDICARE, SELFPAY ==
--- NOTE | 2021-11-17 13:30 | PTOPEVAL1 ---
Evaluation Information Assessment Status Evaluation Diagnosis cervical and L shoulder pain Onset Oct 16 2021 Subjective Information no injury to neck or UE; gradual increase in pain; also has pain and popping of L jaw- not able to wear security officers and guards for clenching her teeth due to issues with her teeth; Reported Pain Level Pain Score range of 0-8/10 Additional Pain Score Comments pain in neck, L upper traps and L jaw pops and painful; sleep is not disrupted due to neck pain, but awaken from sleep to go to bathroom; increase pain at end of day; have headache towards afternoon- posterior head to top of head, lasts rest of day; Oswestry self assessment functional score of 44% limitation in activity level; Assessment PT Clinical Summary Barbara has the diagnosis of Neck and L shoulder pain. She reports gradual increase in pain, without an injury or trauma. 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 Pain is increased with sitting and activity and decreased with lying down flat in bed . Her self assessment Oswestry score is 44% limitation in activity tolerance. With the evaluation, she has decreased cervical ROM with increased pain reported with rotation R and L and moving from flexion of neck to upright position of neck. Pain is over cervical paraspinals, L upper traps and L TMJ with tenderness and clicking with open/closing her mouth. She has poor standing position of her head , neck and shoulders. Skilled PT services are indicated for modalities to decrease pain and spasms, therapeutic exercises to increase cervical ROM and decrease tightness, with education for home exercises and posture correction. Plan of Care Interventions Hot Pack/Cold Pack,Manual Therapy,Mechanical Traction,Patient/Caregiver Education,Therapeutic Activities,Therapeutic Exercise PT Services Indicated Yes Treatment Frequency and 2x/wk for 4 weeks Duration These treatments will address the objective and functional deficits as defined above. The patient will be advanced safely and appropriately in order for the patient to progress towards his/her prior l
--- NOTE | 2021-12-05 10:04 | PCPTNOTE ---
Patient called & cancelled scheduled appointment this date due to not feeling well.
--- NOTE | 2021-12-15 13:17 | PTOPEVAL1 ---
Assessment and note entered by Radha Gomez, PT Evaluation Information Assessment Status Re-evaluation Diagnosis cervical and L shoulder pain Onset Oct 16 2021 Subjective Information Barbara reports: she fell when leaning over to pick something off floor- hit head; gabapentin is helping her pain; is wearing cervical collar all the time--it helps her pain, and is sleeping with it on; have referral to pain management but do not have appt there yet; feel therapy has not helped too much--shoulder is better, but not help neck; Reported Pain Level Pain Score 3: Self Report Additional Pain Score Comments pain range is 3-8/10; no longer can get to 0/10 when lie down, hurts all time now; pain at top of head is gone; still have neck and L shoulder pain ; taking aspirin, using heat pad and muscle cream to help pain; Oswestry self assessment functional score of 42% limitation; demo and trial of self massage with theracane for trigger point massage; Assessment PT Clinical Summary Barbara has received 8 PT sessions for the diagnosis of neck pain. Compared to the initial evaluation: pain rating is the same; self assessment Oswestry score improved by 2%; continues to have spasms over neck and upper trunk; heat and the cervical collar help to decrease her pain; ROM of neck and pain with motions are the same. She has a slight increase in scapular strength; The goals for education were achieved--for HEP and pain management techniques. Barbara has a referral to pain management and wants to hold on PT until that appointment. IF PT is to continue, she will require a new script; HOLD PT at this time. These treatments will address the objective and functional deficits as defined above. The patient will be advanced safely and appropriately in order for the patient to progress towards his/her prior level of function. Additional exercises will be introduced and as well as a comprehensive home exercise program upon discharge, if needed, ?to ensure carryover of functional gains achieved in the clinic. This treatment plan has been reviewed and agreement upon by the patient.
--- NOTE | 2021-12-29 11:47 | PCPTNOTE ---
PHYSICAL THERAPY DISCHARGE 12-29-21 Attending Provider: Rosalind Muñoz NP Patient:Barbara Willoughby Date of :1940 Mrs. Willoughby has not returned for any further treatments since the reevaluation on 12/15/2021, therefore she will be discharged at this time. Refer to the reevaluation report for her status at the last appointment. Thank you for referring this patient to [facility].
== END 2021-12-29 14:19 | disposition home or self-care (01) ==
LOC: ANHPT 12:30
DX: M25.512 Pain in left shoulder (principal); M54.2 Cervicalgia
CPT/HCPCS: 97014; 97110; 97140; 97162; 97530; G0283